=== PATIENT | male | born 1960 | race Caucasian/White ===

== ENCOUNTER 2017-09-20 07:25 | Emergency (ER) | payer OTHER ==
[2017-09-20 07:56] LABS: BASOPHILS % (AUTO) 0.3 %; EOSINOPHILS % (AUTO) 0.1 %; HGB - HEMOGLOBIN 16.4 g/dL (14.0-18.0); LYMPHOCYTES # (AUTO) 1.8 10^3/uL (1.5-3.5); LYMPHOCYTES % (AUTO) 13.4 %; MEAN CORPUSCULAR HEMOGLOBIN 29.8 pg (27.0-31.0); MEAN CORPUSCULAR HGB CONC 33.6 g/dL (32.0-36.0); MEAN CORPUSCULAR VOLUME 88.6 fL (80.0-94.0); MEAN PLATELET VOLUME 7.2 fL (7.4-11.4); MONOCYTES # (AUTO) 0.4 10^3/uL (0.0-1.0); MONOCYTES % (AUTO) 2.9 %; NEUTROPHILS # (AUTO) 11.3 10^3/uL (1.5-6.6); NEUTROPHILS % (AUTO) 83.3 %; PLT - PLATELET COUNT 267 10^3/uL (130-450); RED BLOOD COUNT 5.51 10^6/uL (4.70-6.10); RED CELL DISTRIBUTION WIDTH 13.6 % (12.0-15.0); WHITE BLOOD COUNT 13.5 x10^3/uL (4.8-10.8)
[2017-09-20 08:00] LABS: BILIRUBIN,URINE NEGATIVE (NEGATIVE); GLUCOSE, URINE (UA) NEGATIVE (NEGATIVE); KETONES,URINE (UA) NEGATIVE (NEGATIVE); LEUKOCYTE ESTERASE, URINE NEGATIVE (NEGATIVE); NITRITE,URINE NEGATIVE (NEGATIVE); OCCULT BLOOD,URINE NEGATIVE (NEGATIVE); PROTEIN,URINE NEGATIVE (NEGATIVE); UROBILINOGEN,URINE 0.2 (NORMAL) E.U./dL (NORMAL)
[2017-09-20 08:02] LABS: CLARITY,URINE CLEAR (CLEAR)
[2017-09-20] MEDS ORDERED: ONDANSETRON 4 MG/2 ML VIAL IVP STA (08:06)
[2017-09-20] MEDS ORDERED: SODIUM CHLORIDE 0.9% 1,000 ML IV ONE (08:06)
[2017-09-20] MEDS ORDERED: MORPHINE 2 MG/ML SYRINGE IVP STA (08:06)
[2017-09-20 08:08] LABS: ALBUMIN 4.6 g/dL (3.2-5.5); ALBUMIN/GLOBULIN RATIO 1.3 (1.0-2.2); BILIRUBIN,TOTAL 0.6 mg/dL (0.2-1.0); CALCIUM 9.2 mg/dL (8.5-10.3); TOTAL PROTEIN 8.2 g/dL (6.7-8.2)
--- NOTE | 2017-09-20 08:09 | ED Physician Documentation ---
History of Present Illness - Stated complaint Stated Complaint: ABD PX - Chief complaint Chief Complaint: Abd Pain - Additonal information Additional information: hx from pt 57 male abd pain for approx 3 days - was severe, subsided, no back again R > L both upper and lower 10/10 max assoc [place] - first day with some blood but none since had diarrhea now nl BMs no urinary sx no fever no prior surgery Review of Systems Constitutional: denies: Fever GI: reports: Abdominal Pain, Nausea, Vomiting, Diarrhea. denies: Bloody / black stool : denies: Dysuria, Hematuria Endocrine: denies: Easy bruising / bleeding Immunocompromised: denies: Immunocompromised PD PAST MEDICAL HISTORY - Past Medical History Past Medical History: Yes Cardiovascular: Hypertension Respiratory: Sleep apnea GI: GERD - Past Surgical History Past Surgical History: Yes - Present Medications Home Medications: Ambulatory Orders Medication Instructions Recorded Confirmed Aspirin Chewable [[place] 81 mg PO DAILY 09/20/17 09/20/17 Aspirin] Atenolol 50 mg PO DAILY 09/20/17 09/20/17 Dicyclomine [Bentyl] 10 mg PO Q8H PRN #20 capsule 09/20/17 Omeprazole [PriLOSEC] 20 mg PO DAILY 09/20/17 09/20/17 Ondansetron Odt [Zofran] 4 mg TL Q6H PRN #10 tablet 09/20/17 Simvastatin [Zocor] 40 mg PO DAILY 09/20/17 09/20/17 Telmisartan/Hydrochlorothiazid 1 tab PO DAILY 09/20/17 09/20/17 [Micardis Hct 80-12.5 mg Tablet] - Allergies Allergies/Adverse Reactions: Allergies Allergy/AdvReac Type Severity Reaction Status Date / Time iodine Allergy Unknown Verified 09/20/17 07:32 Penicillins Allergy Unknown Verified 09/20/17 07:32 - Social History Does the pt smoke?: No Smoking Status: Never smoker Does the pt drink ETOH?: Yes Does the pt have substance abuse?: No - Immunizations Immunizations are current?: No Immunizations: TDAP >10years/unknown PD ED PE NORMAL - Vitals Vital signs reviewed: Yes - General General: Alert and oriented X 3 - Neck Neck: Supple, no meningeal sign - Cardiac Cardiac: RRR - Respiratory Respiratory: No respiratory distress - Abdomen Abdomen: Normal bowel sounds, Soft, Other (TTP entire right abd, some vol guarding, no rebound) - Male Male : Receiving Supervisor present (nurse Binu), Other (no hernia) - Derm Derm: Normal color - Neuro Neuro: Alert and oriented X 3 Results - Vitals Vitals: Vital Signs - 24 hr 09/20/17 09/20/17 09/20/17 07:29 10:12 12:14 Temperature 37.0 C 36.9 C 36.8 C Heart Rate 103 H 88 85 Respiratory 18 17 16 Rate Blood Pressure 180/86 H 146/80 H 166/81 H O2 Saturation 100 100 99 Oxygen O2 Source Room air - Labs Labs: Laboratory Tests 09/20/17 09/20/17 09/20/17 07:40 07:50 07:50 WBC 13.5 H RBC 5.51 Hgb 16.4 Hct 48.8 MCV 88.6 MCH 29.8 MCHC 33.6 RDW 13.6 Plt Count 267 MPV 7.2 L Neut # 11.3 H Lymph # 1.8 Butts # 0.4 Eos # 0.0 Baso # 0.0 Absolute Nucleated RBC 0.00 Nucleated RBC % 0.0 Sodium 133 L Potassium 3.7 Chloride 102 Carbon Dioxide 22 Anion Gap 9.0 BUN 14 Creatinine 1.0 Estimated GFR (MDRD) 77 L Glucose 125 H Calcium 9.2 Total Bilirubin 0.6 AST 22 ALT 24 Alkaline Phosphatase 64 Total Protein 8.2 Albumin 4.6 Globulin 3.6 Albumin/Globulin Ratio 1.3 Lipase 27 Urine Color YELLOW Urine Clarity CLEAR Urine pH 6.0 Ur Specific [place] 1.010 Urine Protein NEGATIVE Urine Glucose (UA) NEGATIVE Urine Ketones NEGATIVE Urine Occult Blood NEGATIVE Urine Nitrite NEGATIVE Urine Bilirubin NEGATIVE Urine Urobilinogen 0.2 (NORMAL) Ur Leukocyte Esterase NEGATIVE Ur Microscopic Review NOT INDICATED Urine Culture Comments NOT INDICATED - Rads (name of study) CT AP Radiology: See rad report (nl appendic, diverticulosis) ruq sono Radiology: See rad report (fatty liver otherwsie normal) Departure - Departure Disposition: 01 Home, Self Care Clinical Impression: Abdominal pain Qualifiers: Abdominal location: unspecified location Qualified Code(s): R10.9 - Unspecified abdominal pain Condition: Good Instructions: ED Abdominal Pain Unkn Cause Prescriptions: Dicyclomine [Bentyl] 10 mg PO Q8H PRN #20 capsule PRN Reason: Abdominal Pain Ondansetron Odt [Zofran] 4 mg TL Q6H PRN #10 tablet PRN Reason: Nausea / Vomiting Comments: Your labs looked fine except for an elevated white blood cell count which can be a marker for infection, inflammation, stress due to illness or injury The kidney function, liver function, pancreas function were all fine The CT scan showed you do not have appendicitis or a bowel obstruction or an aneurysm or kidney stones The ultrasound shows you do not have gallstones. I am not certain what is causing then pain but feel the ER work up has ruled out the most dangerous causes of abdominal pain and it does not seem you need antibiotics or surgery So I think it is safe for you to go home for now. I have prescribed medication to ease the pain and nausea Please follow up with your PMD for a recheck if not better in 48 hr Return to the ER if worse or develop new symptoms - abdominal pain can be complicated and it sometimes happens that initially a patient has a normal work up but as symptoms progress, further testing yields an explanation not initially apparent - so if you get worse please come back Forms: Activity restrictions
--- NOTE | 2017-09-20 08:47 | CT Preliminary Report ---
Exam: CT ABDOMEN/PELVIS W/O IMPRESSION: 1. Diverticulosis without inflammatory changes. 2. Normal appendix [facility] SITE ID: [id number]
--- NOTE | 2017-09-20 08:47 | CT Report ---
EXAM: CT ABDOMEN AND PELVIS EXAM DATE: 09/20/2017 08:38 AM. CLINICAL HISTORY: Right sided abd pain. COMPARISONS: None. TECHNIQUE: Routine helical CT imaging was performed through the abdomen and pelvis. IV contrast: None . Enteric contrast: No. Reconstructions: Coronal and sagittal. In accordance with CT protocol optimization, one or more of the following dose reduction techniques w ere utilized for this exam: automated exposure control, adjustment of mA and/or KV based on patient s ize, or use of iterative reconstructive technique. FINDINGS: Lung Bases: Calcified granuloma Liver: Normal. No masses. Gallbladder/Bile Ducts: Unremarkable. Spleen: Normal. Pancreas: Normal. Adrenal Glands: Normal. Kidneys: Normal. No masses or hydronephrosis. Peritoneal Cavity/Bowel: Diverticulosis without inflammatory changes No free fluid, free air or adeno tuan. No masses or acute inflammatory process. The appendix is well visualized and normal. Pelvic Organs: Normal. The bladder and visualized pelvic organs are within normal limits. Vasculature: No aneurysms or other significant abnormality. Bones: No significant abnormality. Other: None. IMPRESSION: 1. Diverticulosis without inflammatory changes. 2. Normal appendix [facility] Referring Provider Line: [phone] SITE ID: [id number]
--- NOTE | 2017-09-20 12:28 | Ultrasound Report ---
RIGHT UPPER QUADRANT ULTRASOUND: 09/20/2017 CLINICAL INDICATION: Pain. TECHNIQUE: Real-time scanning was performed with bilingual sales representative static images obtained. FINDINGS: The liver measures 19.5 cm. Hepatic echogenicity is increased, compatible with fatty infiltration. No focal parenchymal lesion or intrahepatic biliary dilatation is present. The common bile duct measures 4 mm. The gallbladder is normal. The right kidney measures 11.5 cm, and demonstrates no hydronephrosis. No free fluid is seen. IMPRESSION: FATTY INFILTRATION OF THE LIVER. NO EVIDENCE OF CHOLELITHIASIS OR BILIARY OBSTRUCTION. TD: 09/20/2017 12:28
[2017-09-20 13:16] VITALS: BP 136/78
== END 2017-09-20 13:22 | disposition home or self-care (01) ==
LOC: ED 07:25
DX: R10.9 Unspecified abdominal pain (principal); I10 Essential (primary) hypertension; Z79.82 Long term (current) use of aspirin
CPT/HCPCS: 36415; 74176; 76705; 80053; 81003; 83690; 85025; 96361; 96374; 99283; 99284; J2270; 81001; 87086